=== PATIENT | female | born 1955 | race Caucasian/White ===

== ENCOUNTER 2016-10-29 13:53 | Outpatient (CLI) | payer OTHER | END 2016-10-29 13:55 | LOC: LAB 13:53 | PROVIDERS: ATTEND Family Medicine | DX: F31.81 Bipolar II disorder (principal) | CPT/HCPCS: 36415; 80178 ==

== ENCOUNTER 2017-09-17 11:35 | Outpatient (CLI) | payer OTHER ==
[2017-09-17 12:02] LABS: EOSINOPHILS % 0.2 % (0.0-6.8); MEAN CORPUSCULAR HEMOGLOBIN 33.7 pg (28.0-34.0); MONOCYTES % 3.1 % (0.0-11.0); NEUTROPHILS # 2.8 # k/uL (1.4-7.7)
[2017-09-17 12:26] LABS: eGFR (African) > 60; eGFR (Non-African) > 60
--- NOTE | 2017-09-17 13:03 | Diagnostic Imaging Report ---
HIRA BERGERON [facility] [address] [facility] [address] [place], [place]. 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 History: 2V CHEST - FEVER HX - PATIENT STATES COUGH, FEVER, BODY ACHES SINCE FIRST OF AUG 2017 WITH COUGH GETTING BETTER (Hx) / FEVER (DICOM Hx) / FEVER (Pt comments) Comparison exam: None provided. Findings: PA lateral chest demonstrate a normal cardiac and mediastinal silhouette. No focal infiltrate. No blunting of the costophrenic margins. Osseous structures are appropriate for age. Impression: No acute pulmonary process. 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
== END 2017-09-17 11:36 ==
LOC: LAB 11:35
PROVIDERS: ATTEND Family Medicine
DX: R50.9 Fever, unspecified (principal); Z79.899 Other long term (current) drug therapy; R79.89 Other specified abnormal findings of blood chemistry
CPT/HCPCS: 36415; 71046; 80053; 80074; 80178; 84443; 85025

== ENCOUNTER 2017-09-18 07:10 | Outpatient (CLI) | payer OTHER ==
[2017-09-18 07:56] LABS: eGFR (African) > 60; eGFR (Non-African) > 60
== END 2017-09-18 07:11 ==
LOC: LAB 07:10
PROVIDERS: ATTEND Family Medicine
DX: R79.89 Other specified abnormal findings of blood chemistry (principal)
CPT/HCPCS: 36415; 80053

== ENCOUNTER 2017-09-22 07:54 | Outpatient (CLI) | payer OTHER ==
[2017-09-22 08:25] LABS: eGFR (African) > 60; eGFR (Non-African) > 60
--- NOTE | 2017-09-22 10:23 | Diagnostic Imaging Report ---
HIRA BERGERON [facility] [address] [facility] [address] [place], [place]. [address] Report Submission Date: Sep 22, 2017 9:52:41 AM [employer] Patient Study Name: DENISE BOWENS Date: Sep 22, 2017 8:13:28 AM [employer] Modality Type: US Gender: F Description: SHYANNE LEVY : 55 Institution: [facility] Physician: HIRA BERGERON Limited abdominal ultrasound History: ELEVATED LFT'S Grayscale and color Doppler images of the abdomen are submitted No comparison studies Visualized portions of the pancreas are within normal limits. The liver is coarse in echotexture and heterogeneous in echogenicity. Mild hepatomegaly is seen, portal venous flow is antegrade to the liver. Shadowing is noted in the left hepatic lobe adjacent to the left branch of the portal vein. The right kidney measures 5.5 x 11.7 x 5.1 cm. No obvious right hydronephrosis Common bile duct measures 5 mm. Patient is post cholecystectomy. Impression: 1. Mild hepatomegaly with coarse hepatic parenchyma, this limits evaluation for hepatic lesions. Shadowing is noted adjacent to the left branch of the portal vein, underlying lesion is difficult to exclude or assess for. This is of indeterminate etiology, recommend further evaluation with [address]/ MR 2. Post cholecystectomy, no biliary dilatation Electronically signed on Sep 22, 2017 9:52:41 AM [employer] by: Kiara PEREZ
== END 2017-09-22 07:55 ==
LOC: RAD 07:54
PROVIDERS: ATTEND Family Medicine
DX: R79.89 Other specified abnormal findings of blood chemistry (principal)
CPT/HCPCS: 36415; 76705; 80053